=== PATIENT | female | born 1945 | race Caucasian/White ===

== ENCOUNTER 2018-02-08 17:31 | Emergency (ER) | payer OTHER, MEDICAID ==
[~2018-02-08] VITALS: Ht 162.6 cm; Wt 59.0 kg
[2018-02-08 17:31] VITALS: BP_SYST 160
--- NOTE | 2018-02-08 17:35 | NUR ---
BROUGHT BACK TO BED #5 AND TRIAGED. REPORT GIVEN TO RHODA
--- NOTE | 2018-02-08 17:50 | NUR ---
Patient c/c of lower back pain, right side radiating down right thigh. Positive for nausea, and incontinence. Patient denies diarrhea and vomiting at this time.
--- NOTE | 2018-02-08 17:55 | NUR ---
ER at bedside examining patient.
--- NOTE | 2018-02-08 18:56 | NUR ---
Patient states she is feeling like her pain is decreasing with rest. Patient needs are met at this time. Patient states before her hip surgery last year, 2016, she received toradol when her arthritis pain was increased and it worked well for her pain managment.
--- NOTE | 2018-02-08 19:00 | NUR ---
Report given from ABEL Pierce to myself.
[2018-02-08 19:16] LABS: BILIRUBIN,URINE NEGATIVE (NEGATIVE); BLOOD, URINE NEGATIVE (NEGATIVE); CLARITY/URINE CLEAR (CLEAR); COLOR,URINE YELLOW (YELLOW); GLUCOSE,URINE NEGATIVE (NEGATIVE); KETONES,URINE NEGATIVE (NEGATIVE); LEUKOCYTE ESTERASE ,URINE NEGATIVE (NEGATIVE); NITRITE, URINE NEGATIVE (NEGATIVE); PH,URINE 6.5 (5.0-8.0); PROTEIN URINE NEGATIVE (NEGATIVE); UROBILINOGEN,URINE 0.2 (0.2-1.0)
--- NOTE | 2018-02-08 19:20 | NUR ---
Patient resting in bed comfortably. No acute distress noted. Will cont. to monitor.
[2018-02-08] MEDS ORDERED: KETOROLAC TROMETHAMINE 30 MG VIAL IM ONE (20:00)
--- NOTE | 2018-02-08 20:05 | NUR ---
Patient given Toradol IM, Patient tolerated well. Will cont to monitor.
[2018-02-08 20:17] VITALS: BP_SYST 148
--- NOTE | 2018-02-08 20:17 | NUR ---
Patient given written and verbal discharge instructions and verbalizes understanding. ER MD Dr. Hawkins discussed with patient the results and treatment provided. Patient in stable condition. ID arm band removed. Rx of Tylenol with codeine given. Patient educated on pain management and to follow up with PMD within 2-3 days. Pain Scale 0/10. Opportunity for questions provided and answered. Medication side effect fact sheet provided.
== END 2018-02-08 20:17 | disposition home or self-care (01) ==
LOC: SED 17:31
DX: M54.5 Low back pain (principal)
CPT/HCPCS: 81003; 96372; 99283; J1885

== ENCOUNTER 2019-06-10 19:24 | Emergency (ER) | payer OTHER, MEDICAID ==
[~2019-06-10] VITALS: Ht 152.4 cm; Wt 60.8 kg
[2019-06-10 19:30] VITALS: BP_SYST 129
--- NOTE | 2019-06-10 19:30 | NUR ---
Patient triaged and placed in waiting room. VSS and patient appears in no acute distress at this time. Accompanied by SELF, awaiting available bed, and MD notified of need for MSE.
[2019-06-10 21:17] LABS: BILIRUBIN,URINE NEGATIVE (NEGATIVE); BLOOD, URINE NEGATIVE (NEGATIVE); COLOR,URINE YELLOW (YELLOW); GLUCOSE,URINE NEGATIVE (NEGATIVE); KETONES,URINE NEGATIVE (NEGATIVE); LEUKOCYTE ESTERASE ,URINE TRACE (NEGATIVE); NITRITE, URINE NEGATIVE (NEGATIVE); PH,URINE 6.5 (5.0-8.0); PROTEIN URINE NEGATIVE (NEGATIVE); UROBILINOGEN,URINE 0.2 (0.2-1.0)
[2019-06-10 21:55] LABS: CLARITY/URINE HAZY (CLEAR)
[2019-06-10 21:56] LABS: RBC,URINE 0-3 /HPF (0-3)
[2019-06-10 21:57] LABS: BACTERIA,URINE MODERATE /HPF (None Seen)
--- NOTE | 2019-06-10 22:06 | NUR ---
Patient to ER bed 1 to gown for evaluation. Side rails up. Report given to GALO ROMAN.
[2019-06-10 22:50] VITALS: BP_SYST 129
--- NOTE | 2019-06-10 22:51 | NUR ---
REASSESSMENT BY ERMD; ACI PER ERMD; PATIENT DISCHARGED AMBULATORY; UNCHANGED
== END 2019-06-10 22:51 | disposition home or self-care (01) ==
LOC: SED 19:24
DX: N39.0 Urinary tract infection, site not specified (principal); I10 Essential (primary) hypertension
CPT/HCPCS: 81000-TC; 87086; 87186-TC; 99283